=== PATIENT | male | born 1955 ===

== ENCOUNTER 2025-05-13 11:30 | Inpatient (IN) | payer OTHER ==
[~2025-05-13] VITALS: Ht 180.3 cm; Wt 71.7 kg
[2025-05-13] MEDS ORDERED: CLONAZEPAM0.5 MG PO (14:01)
[2025-05-13] MEDS ORDERED: SINGULAIR10 MG PO (14:01)
[2025-05-13] MEDS ORDERED: HORIZANT300 MG PO (14:01)
[2025-05-13] MEDS ORDERED: PEPCID40 MG PO (14:01)
[2025-05-13] MEDS ORDERED: COZAAR50 MG PO (14:01)
[2025-05-13] MEDS ORDERED: NEXIUM 24HR20 MG PO (14:02)
[2025-05-13] MEDS ORDERED: CARDURA XL4 MG PO (14:02)
[2025-05-13] MEDS ORDERED: REMERON30 MG PO (14:02)
[2025-05-13 14:03] VITALS: BP 136/87
[2025-05-13] MEDS ORDERED: LIPITOR40 MG PO (14:03)
[2025-05-21] MEDS ORDERED: METRONIDAZOLE/SODIUM CHLORIDE 500 MG/100 ML PIGGYBACK IV ONE (09:21)
[2025-05-21] MEDS ORDERED: CEFTRIAXONE SODIUM 2,000 MG VIAL ONE (09:21)
[2025-05-21] MEDS ORDERED: BUPIVACAINE HCL 30 ML VIAL IJ ONE (11:45)
[2025-05-21] MEDS ORDERED: LIDOCAINE HCL 1%/EPINEPHRINE 20ML VIAL IJ ONE (11:45)
[2025-05-21] MEDS ORDERED: SUGAMMADEX SODIUM 200 MG/2 ML VIAL IV ONE (13:08)
[2025-05-21] MEDS ORDERED: OxyCODONE HCL 5 MG TABLET (ROXICODONE) PO PRN (13:45)
[2025-05-21] MEDS ORDERED: DEXTROSE 50 % IN WATER 0.5 G/ML DISP.SYRIN IV PRN (13:45)
[2025-05-21] MEDS ORDERED: 0.9 % SODIUM CHLORIDE 1,000 ML IV SCH (13:45)
[2025-05-21] MEDS ORDERED: ONDANSETRON HCL 2 MG/ML VIAL IV PRN (13:45)
[2025-05-21] MEDS ORDERED: MORPHINE SULFATE 4 MG/ML VIAL IV PRN (13:45)
[2025-05-21] MEDS ORDERED: ACETAMINOPHEN 500 MG GEL..CAP PO SCH (14:00)
[2025-05-21 15:41] LABS: BASO % 0.1 % (0.1-1.2); EOS # 0.01 (0.04-0.54); EOS % 0.1 % (0.7-7.0); LYMPH # 0.57 (1.18-3.74); LYMPH % 4.1 % (19.3-53.1); MEAN PLATELET VOLUME 9.80 fl (9.4-12.4); MONO # 0.58 (0.24-0.82); MONO % 4.1 % (4.7-12.5); NEUT # 12.83 (1.56-6.13); NEUT % 91.4 % (34.0-71.1); RED CELL DISTRIBUTION WIDTH 13.5 % (11.6-14.4)
[2025-05-21 16:09] LABS: BUN CREA RATIO 8.0 (7.0-25.0); CREATININE SERUM 1.2 mg/dL (0.70-1.30); GFR 59.51; GLUCOSE FASTING 158.0 mg/dL (65-100); OSMOLALITY SERUM 284.0 MOSM/KG (275-295)
[2025-05-21] MEDS ORDERED: HYOSCYAMINE SULFATE 0.125 MG TAB.SUBL ONE (16:15)
[2025-05-21] MEDS ORDERED: GABAPENTIN 300 MG CAPSULE PO ONE (16:15)
[2025-05-21] MEDS ORDERED: HYOSCYAMINE SULFATE 0.125 MG TAB.SUBL SL SCH (17:00)
[2025-05-21] MEDS ORDERED: GABAPENTIN 300 MG CAPSULE PO SCH (17:00)
[2025-05-21] MEDS ORDERED: ACETAMINOPHEN 500 MG GEL..CAP PO ONE (19:24)
[2025-05-21 19:55] VITALS: BP 152/83; O2SAT 95
[2025-05-21] MEDS ORDERED: FAMOTIDINE/PF 20 MG/2 ML VIAL IV PUSH SCH (21:00)
[2025-05-21] MEDS ORDERED: CELECOXIB 200 MG CAPSULE PO SCH (21:00)
[2025-05-21 23:30] VITALS: BP 144/79; O2SAT 97
[2025-05-22 06:33] LABS: BUN CREA RATIO 10.0 (7.0-25.0); CREATININE SERUM 1.02 mg/dL (0.70-1.30); GFR 71.79; GLUCOSE FASTING 126.0 mg/dL (65-100); OSMOLALITY SERUM 282.0 MOSM/KG (275-295)
[2025-05-22 06:36] LABS: BASO % 0.1 % (0.1-1.2); EOS # 0.00 (0.04-0.54); EOS % 0.0 % (0.7-7.0); LYMPH # 0.63 (1.18-3.74); LYMPH % 4.9 % (19.3-53.1); MEAN PLATELET VOLUME 9.70 fl (9.4-12.4); MONO # 0.64 (0.24-0.82); MONO % 4.9 % (4.7-12.5); NEUT # 11.60 (1.56-6.13); NEUT % 89.7 % (34.0-71.1); RED CELL DISTRIBUTION WIDTH 13.3 % (11.6-14.4)
[2025-05-22 08:00] VITALS: BP 132/85; O2SAT 97
[2025-05-22] MEDS ORDERED: SUCRALFATE 1 G TABLET PO SCH (09:00)
[2025-05-22] MEDS ORDERED: PANTOPRAZOLE SODIUM 40 MG/VIAL VIAL IV SCH (09:00)
[2025-05-22 16:31] VITALS: BP 130/83; O2SAT 98
[2025-05-22] MEDS ORDERED: ENOXAPARIN SODIUM 40 MG/0.4 ML SYRINGE SUBCUTANEO SCH (17:00)
[2025-05-23 01:00] VITALS: BP 124/78; O2SAT 97
[2025-05-23] MEDS ORDERED: ENOXAPARIN SODIUM 40 MG/0.4 ML SYRINGE SUBCUTANEO SCH (09:00)
[2025-05-23] MEDS ORDERED: LOSARTAN POTASSIUM 50 MG TABLET PO SCH (09:00)
[2025-05-23] MEDS ORDERED: DOXAZOSIN MESYLATE 4 MG TABLET PO SCH (09:00)
[2025-05-23] MEDS ORDERED: CLONAZEPAM 0.5 MG TABLET PO SCH (09:00)
[2025-05-23 09:45] VITALS: BP 153/87; O2SAT 97
[2025-05-23 17:37] VITALS: BP 120/72; O2SAT 95
[2025-05-24] MEDS ORDERED: GUAIFENESIN 200 MG/10 ML BLIST.PACK PO SCH
[2025-05-24 00:06] VITALS: BP 116/77; O2SAT 96
[2025-05-24] MEDS ORDERED: IPRATROPIUM BROMIDE 0.5 MG/2.5 ML AMPUL.NEB IH SCH (01:00)
[2025-05-24] MEDS ORDERED: LEVALBUTEROL HCL 1.25 MG/3 ML SOLUTION IH SCH (01:00)
[2025-05-24 09:47] VITALS: BP 114/74; O2SAT 95
[2025-05-24] MEDS ORDERED: POLYETHYLENE GLYCOL 3350 17 GM BLIST.PACK PO SCH (17:00)
[2025-05-24 17:14] VITALS: BP 107/69; O2SAT 97
[2025-05-24 21:40] VITALS: BP 119/77; O2SAT 97
[2025-05-24] MEDS ORDERED: METHYLPREDNISOLONE SOD SUCC 40 MG VIAL IV ONE (22:15)
[2025-05-24] MEDS ORDERED: MONTELUKAST SODIUM 10 MG TABLET PO SCH (22:20)
[2025-05-24] MEDS ORDERED: LORATADINE 10 MG TABLET PO SCH (22:30)
[2025-05-25 00:49] VITALS: BP 119/80; O2SAT 97
[2025-05-25] MEDS ORDERED: IPRATROPIUM BROMIDE 0.5 MG/2.5 ML AMPUL.NEB IH SCH (01:00)
[2025-05-25] MEDS ORDERED: LEVALBUTEROL HCL 1.25 MG/3 ML SOLUTION IH SCH (01:00)
[2025-05-25 06:44] LABS: BASO % 0.0 % (0.1-1.2); EOS # 0.00 (0.04-0.54); EOS % 0.0 % (0.7-7.0); LYMPH # 0.19 (1.18-3.74); LYMPH % 4.0 % (19.3-53.1); MEAN PLATELET VOLUME 9.70 fl (9.4-12.4); MONO # 0.03 (0.24-0.82); MONO % 0.6 % (4.7-12.5); NEUT # 4.53 (1.56-6.13); NEUT % 95.2 % (34.0-71.1); RED CELL DISTRIBUTION WIDTH 13.3 % (11.6-14.4)
[2025-05-25 07:31] LABS: BUN CREA RATIO 6.0 (7.0-25.0); CREATININE SERUM 1.12 mg/dL (0.70-1.30); GFR 64.45; GLUCOSE FASTING 167.0 mg/dL (65-100); OSMOLALITY SERUM 283.0 MOSM/KG (275-295)
[2025-05-25 08:00] VITALS: BP 120/73; O2SAT 91
[2025-05-25] MEDS ORDERED: METHYLPREDNISOLONE SOD SUCC 40 MG VIAL IV SCH ×2 (09:00)
[2025-05-25] MEDS ORDERED: PIPERACILLIN/TAZOBACTAM SODIUM 3.375 GM in 0.9 % SODIUM CHLORIDE 100 ML IV NR (15:30)
[2025-05-25 16:56] VITALS: BP 101/64; O2SAT 96
[2025-05-25] MEDS ORDERED: PIPERACILLIN/TAZOBACTAM SODIUM 3.375 GM in 0.9 % SODIUM CHLORIDE 100 ML IV SCH (20:00)
[2025-05-25] MEDS ORDERED: BUDESONIDE 0.5 MG/2 ML AMPUL.NEB IH SCH (22:56)
[2025-05-26 01:27] VITALS: BP 98/57; O2SAT 95
[2025-05-26 06:59] LABS: BASO % 0.1 % (0.1-1.2); EOS # 0.00 (0.04-0.54); EOS % 0.0 % (0.7-7.0); LYMPH # 0.50 (1.18-3.74); LYMPH % 4.4 % (19.3-53.1); MEAN PLATELET VOLUME 10.10 fl (9.4-12.4); MONO # 0.43 (0.24-0.82); MONO % 3.8 % (4.7-12.5); NEUT # 10.28 (1.56-6.13); NEUT % 91.2 % (34.0-71.1); RED CELL DISTRIBUTION WIDTH 13.7 % (11.6-14.4)
[2025-05-26 08:00] VITALS: BP 111/64; O2SAT 96
[2025-05-26] MEDS ORDERED: TRAM1TAB98 PO (08:01)
[2025-05-26] MEDS ORDERED: PEPCID AC20 MG PO (08:01)
[2025-05-26] MEDS ORDERED: AMOX1TAB5 PO (08:02)
[2025-05-26 08:12] LABS: ALT/SGPT 36.0 U/L (12-78); AST/SGOT 35.0 U/L (15-37); BILIRUBIN TOTAL 0.65 mg/dL (0.3-1.2); BUN CREA RATIO 16.0 (7.0-25.0); CREATININE SERUM 1.07 mg/dL (0.70-1.30); GFR 67.93; GLOBULINA 2.7 G/DL (2.4-3.5); GLUCOSE FASTING 118.0 mg/dL (65-100); OSMOLALITY SERUM 291.0 MOSM/KG (275-295)
[2025-05-26] MEDS ORDERED: POTASSIUM PHOS,M-BASIC-D-BASIC 15 MM in 0.9 % SODIUM CHLORIDE 250 ML IV NR (10:30)
== END 2025-05-26 11:00 | disposition home or self-care (01) | DRG 330 ==
LOC: SURH 05-21 08:45 → SURG 05-21 09:00 → O/R 05-21 09:00 → SURH 05-21 11:30 → SURG 05-21 16:03 → SURH 05-22 10:45
PROVIDERS: Surgery; ADMIT Surgery; ATTEND Surgery
PROC: 07BB4ZZ Excision of Mesenteric Lymphatic, Percutaneous Endoscopic Approach (ICD-10-PCS; 2025-05-21)
PROC: 0DTF4ZZ Resection of Right Large Intestine, Percutaneous Endoscopic Approach (ICD-10-PCS; principal; 2025-05-21 08:45)
PROC: 4A033R1 Measurement of Arterial Saturation, Peripheral, Percutaneous Approach (ICD-10-PCS; 2025-05-24)
PROC: 3E0F7GC Introduction of Other Therapeutic Substance into Respiratory Tract, Via Natural or Artificial Opening (ICD-10-PCS; 2025-05-25)
DX: C18.7 Malignant neoplasm of sigmoid colon (principal); J95.89 Other postprocedural complications and disorders of respiratory system, not elsewhere classified; D37.4 Neoplasm of uncertain behavior of colon; R19.5 Other fecal abnormalities; R11.0 Nausea